=== PATIENT | female | born 2000 | race Caucasian/White ===

== ENCOUNTER 2019-12-08 13:27 | Emergency (ER) | payer OTHER ==
[2019-12-08 14:03] VITALS: BP 112/74; PULSE 85; RESP 18; TEMP 98
[2019-12-08] MEDS ORDERED: IBUPROFEN 600 MG TAB PO STA (14:12)
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
--- NOTE | 2019-12-08 15:05 | XR ---
Facial bones and right foot HISTORY: Trauma, pain 3 views of the right foot, 4 views of the facial bones Bone mineralization is maintained. There is no air-fluid level visualized in the paranasal sinuses. O rbits are intact. The right foot shows normal joint spaces, alignment, bone mineralization. IMPRESSION: No evident fracture or dislocation of the right foot or facial bones. Follow-up as indica ishmael.
== END 2019-12-08 15:22 | disposition home or self-care (01) ==
LOC: EC 13:27
DX: S90.811A Abrasion, right foot, initial encounter (principal); W22.8XXA Striking against or struck by other objects, initial encounter
CPT/HCPCS: 70150; 99283

== ENCOUNTER 2021-04-27 21:41 | Emergency (ER) | payer OTHER ==
[2021-04-27 22:02] VITALS: BP 118/72; PULSE 93; RESP 20; TEMP 98
--- NOTE | 2021-04-27 22:15 | ED ---
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 Patient presents today for evaluation psychiatric illness. Patient was picked up under pickup order but the symptoms denies homicidal or suicidal thoughts and patient wants to be discharged home MD Complaint: altered mental status Associated Psychiatric Symptoms: racing thoughts Worsens With: none Context: significant life stressor Associated Symptoms: denies other symptoms Treatments Prior to Arrival: placed on mental health hold - Related Data Allergies Allergy/AdvReac Type Severity Reaction Status Date / Time No Known Allergies Allergy Verified 04/27/21 21:59 Review of Systems ROS Statement: Those systems with pertinent positive or pertinent negative responses have been documented in the HPI. ROS Other: All systems not noted in ROS Statement are negative. Past Medical History Past Medical History: No Reported History History of Any Multi-Drug Resistant Organisms: None Reported Past Surgical History: No Surgical Hx Reported Past Psychological History: Anxiety Smoking Status: Current every day smoker Past Alcohol Use History: Occasional Past Drug Use History: Marijuana General Exam Limitations: no limitations General appearance: alert, in no apparent distress, anxious Head exam: Present: atraumatic, normocephalic, normal inspection Eye exam: Present: normal appearance, PERRL, EOMI. Absent: scleral icterus, conjunctival injection, periorbital swelling ENT exam: Present: normal exam, mucous membranes moist Neck exam: Present: normal inspection. Absent: tenderness, meningismus, lymphadenopathy Respiratory exam: Present: normal lung sounds bilaterally. Absent: respiratory distress, wheezes, rales, rhonchi, stridor Cardiovascular Exam: Present: regular rate, normal rhythm, normal heart sounds. Absent: systolic murmur, diastolic murmur, rubs, gallop, clicks GI/Abdominal exam: Present: soft, normal bowel sounds. Absent: distended, tenderness, guarding, rebound, rigid Extremities exam: Present: normal inspection, full ROM, normal capillary refill. Absent: tenderness, pedal edema, joint swelling, calf tenderness Back exam: Present: normal inspection Neurological exam: Present: alert, oriented X3, CN II-XII intact Psychiatric exam: Present: normal affect, normal mood Skin exam: Present: warm, dry, intact, normal color. Absent: rash Course Vital Signs 04/27/21 21:59 Temperature 98.0 F Pulse Rate 93 Respiratory 20 Rate Blood Pressure 118/72 O2 Sat by Pulse 96 Oximetry - Reevaluation(s) Reevaluation #1: 04/28/21 02:12 Medical record is reviewed 04/28/21 02:12 Kadie fowler for psychiatric evaluation Medical Decision Making - Medical Decision Making 20 female seen in however psychiatry here in the ER okay for discharge home patient excited to be discharged to cannot wait to get out of the emergency department - Lab Data Lab Results 04/27/21 Range/Units 23:19 Urine Opiates Screen Not Detected (NotDetected) Ur Oxycodone Screen Not Detected (NotDetected) Urine Methadone Screen Not Detected (NotDetected) Ur Propoxyphene Screen Not Detected (NotDetected) Ur Barbiturates Screen Not Detected (NotDetected) U Tricyclic Antidepress Not Detected (NotDetected) Ur Phencyclidine Scrn Not Detected (NotDetected) Ur Amphetamines Screen Detected H (NotDetected) U Methamphetamines Scrn Detected H (NotDetected) U Benzodiazepines Scrn Not Detected (NotDetected) Urine Cocaine Screen Not Detected (NotDetected) U Marijuana (THC) Screen Detected H (NotDetected) Disposition Clinical Impression: Adjustment disorder with anxiety, Adjustment reaction of adult life Disposition: HOME SELF-CARE Condition: Good Instructions (If sedation given, give patient instructions): Mood Disorders (ED) Is patient prescribed a controlled substance at d/c from ED?: No Referrals: Patricia Brink MD [Primary Care Provider] - 1-2 days
[2021-04-28 00:34] LABS: Amphetamine Screen,Urine Detected (NotDetected); Barbiturate Screen,Urine Not Detected (NotDetected); Benzodiazepines Screen,Urine Not Detected (NotDetected); Cocaine Screen,Urine Not Detected (NotDetected); Methadone Screen, Urine Not Detected (NotDetected); Opiate Screen,Urine Not Detected (NotDetected); Oxycodone Screen, Urine Not Detected (NotDetected); Phencyclidine Screen,Urine Not Detected (NotDetected); Tricyclic Antidepressant,Urine Not Detected (NotDetected); Urn Cannabinoid Scrn Detected (NotDetected)
== END 2021-04-28 00:57 | disposition home or self-care (01) ==
LOC: EC 21:41
DX: F43.22 Adjustment disorder with anxiety (principal); F17.200 Nicotine dependence, unspecified, uncomplicated
CPT/HCPCS: 80306; 82075; 99284